=== PATIENT | male | born 1975 | race Caucasian/White ===

== ENCOUNTER 2018-08-01 18:37 | Emergency (ER) | payer OTHER ==
[2018-08-01 18:55] VITALS: BP 136/86; PULSE 78; TEMP 98; BMI 24.7
--- NOTE | 2018-08-01 20:22 | PDOC ---
Attending Attestation - HPI HPI: 08/01/18 21:07 Patient is a 42 year old male with a significant past medical history of who presents to the ED with complaints of congestion that began earlier today. Patient reports coughing earlier today when he noticed presence of bright red blood with blood clots, prompting him to come into the ED for further evaluation. Denies chest pain, Sob. Denies nausea, vomiting. Deines contact with sick individuals, out of state travelling. Denies any other symptoms. Allergies: Aspirin Social history: No smoking. No alcohol. No illicit drugs. Surgical history: None PMD: None - Physicial Exam PE: 08/01/18 21:07 Agree with residents Physical Exam. <Jaime Rodriguez - Last Filed: 08/01/18 21:07> - Resident Resident Name: Amy Smith - ED Attending Attestation I have performed the following: I have examined & evaluated the patient, The case was reviewed & discussed with the resident, I agree w/resident's findings & plan - Medical Decision Making 08/01/18 22:31 42-year-old male with cough and blood-tinged sputum Patient has had some intermittent back pain with cough D-dimer within normal limits Chest x-ray shows no acute consolidation There has been no weight loss or associated night sweats to suggest TB infection Plan for discharge home pending chemistry results with outpatient primary care follow-up <Ophelia Jarvis - Last Filed: 08/01/18 22:32>
--- NOTE | 2018-08-01 21:08 | PDOC ---
History of Present Illness - General Chief Complaint: Hemoptysis Stated Complaint: COUGHING UP BLOOD Time Seen by Provider: 08/01/18 20:17 History Source: Patient Exam Limitations: Language Barrier - History of Present Illness Initial Comments: 08/01/18 21:02 Pt is a 42yo M with no significant PMH presenting to ED for hemoptysis. Pt states around 2pm today he started to feel congestion in the chest. He states that the phlegm he would cough up was bright red with some clots x3. He has never had symptoms like this before. Associated with some chest tightness. He denies fevers, chills, weight loss, night sweats, history of TB, headache, neck stiffness, abdominal pain, n/v/d, bloody stools, urinary symptoms, back pain, recent surgery, recent travel, leg swelling, palpitations. No sick contacts. 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 PMD: none PMH: none PSH: appendectomy Meds: none Allergies: ASA Social: denies tobacco use Past History - Past Medical History Allergies/Adverse Reactions: Allergies Allergy/AdvReac Type Severity Reaction Status Date / Time aspirin AdvReac Severe Difficulty Verified 08/01/18 18:50 Breathing COPD: No - Surgical History Appendectomy: Yes - Suicide/Smoking/Psychosocial Hx Smoking History: Never smoked Hx Alcohol Use: No Drug/Substance Use Hx: No Review of Systems - Review of Systems Constitutional: No: Chills, Fever, Night Sweats, Weakness, Unintentional Wgt. Loss HEENTM: No: Symptoms Reported Respiratory: Yes: Cough, Hemoptysis. No: Shortness of Breath Cardiac (ROS): Yes: See HPI, Chest Tightness. No: Lightheadedness, Palpitations , Syncope ABD/GI: No: Constipated, Diarrhea, Nausea, Rectal Bleeding, Vomiting, Abdominal cramping, Tarry Stools : No: Burning, Dysuria, Hematuria Musculoskeletal: No: Back Pain, Joint Pain, Muscle Pain Integumentary: No: Symptoms Reported Neurological: No: Symptoms reported *Physical Exam - Vital Signs Last Vital Signs Temp Pulse Resp BP Pulse Ox 98.0 F 78 22 H 136/86 98 08/01/18 18:51 08/01/18 18:51 08/01/18 18:51 08/01/18 18:51 08/01/18 18:51 - Physical Exam General Appearance: Yes: Nourished, Appropriately Dressed. No: Apparent Distress HEENT: positive: EOMI, SHANNON, Normal ENT Inspection, Other (no leisons in the mouth) Neck: positive: Trachea midline, Supple. negative: Lymphadenopathy (R), Lymphadenopathy (L) Respiratory/Chest: positive: Lungs Clear, Normal Breath Sounds. negative: Labored Respiration, Crackles, Rales, Rhonchi, Stridor Cardiovascular: positive: Regular Rhythm, Regular Rate, S1, S2. negative: Edema , JVD, Murmur Vascular Pulses: Carotid (R): 2+, Carotid (L): 2+, Dorsalis-Pedis (R): 2+, Doralis-Pedis (L): 2+ Gastrointestinal/Abdominal: positive: Normal Bowel Sounds, Soft. negative: Tender Musculoskeletal: negative: CVA Tenderness Extremity: positive: Normal Capillary Refill, Pelvis Stable. negative: Swelling , Calf Tenderness Integumentary: positive: Normal Color, Dry, Warm. 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 Pt states around 2pm today he started to feel congestion in the chest. He states that the phlegm he would cough up was bright red with some clots x3. He has never had symptoms like this before. Associated with some chest tightness. He denies SOB, fevers, chills, weight loss, night sweats, history of TB, headache, neck stiffness, abdominal pain, n/v/d, bloody stools, urinary symptoms, back pain, recent surgery, recent travel, leg swelling, palpitations. No sick contacts. 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 Vitals: tachypneic 22, normocardic PE: normal breath sounds, normal heart sounds Ddx includes but not limited to bronchitis, TB, PE, malignancy, AVM, dissection , metabolic disorders, low suspicion for cardiac etiology, infectious causes -cbc, cmp, coags, trop, ddimer -cxr all labs wnl. negative trop, negative ddimer. CXR does not show infiltrates or consolidations. most likely bronchitis. Pt hemodynamically stable, wiill dc home. given f/u for pulm and primary care. pt understood return precautions. 08/02/18 00:03 *DC/Admit/Observation/Transfer Diagnosis at time of Disposition: Hemoptysis, Bronchitis - Discharge Dispostion Condition at time of disposition: Good Decision to Admit order: No - Referrals Referrals: German Louise MD, MD [Staff Physician] - - Patient Instructions Printed Discharge Instructions: DI for Hemoptysis Additional Instructions: Fue atendido hoy en la liliya de emergencias por toser lionel (hemoptisis). El laboratorio es normal y la radiografa es normal. Esta es la bronquitis ms probable. Puede usar aerosoles de solucin salina nasal y usar un humidificador. Puede luciana Tylenol o ibuprofeno para el dolor segn sea necesario. Le recomiendo que basil sherrie kelly con un neumlogo (mdico de pulmn). Se puede mikey al Dr. Louise Tambin le recomiendo que absil sherrie kelly con un mdico de atencin primaria. VIKY BENAVIDEZ [address] [facility] [address] [place] [address] T: [phone] Regrese a la liliya de emergencias si la tos empeora, desarrolla fiebre, comienza a perder peso, tiene dificultad para respirar o si aparece algn sntoma nuevo. Teresa You were seen in the emergency room today for coughing up blood (hemoptysis). The lab is normal and the Xray is normal. This is most likely bronchitis. You can use nasal saline sprays and use a humidifier. You can take Tylenol or ibuprofen for pain as needed. I recommend that you make an appointment with a business broker (lung doctor). You can see Dr. Louise I also recommend you make an appointment with a primary care doctor. Call to make an appointment any time. VIKY BENAVIDEZ [address] [facility] [address] [place] [address] T: [phone] Come back to the emergency room if cough gets worse, you develop fever, you start losing weight, you have difficulty breathing or if any new concerning symptom develops. Thank you Print Language: UKRAINIAN - Post Discharge Activity Forms/Work/School Notes: Back to Work
[2018-08-01 21:13] LABS: BASO % 0.9 % (0-2.0); EOS % 0.7 % (0-4.5); HEMATOCRIT 43.1 % (35.4-49); LYMPH % 30.2 % (8-40); MCH 30.1 pg (25.7-33.7); MCHC 34.7 g/dl (32.0-35.9); MEAN CELL VOLUME 86.7 fl (80-96); MEAN PLT VOLUME 9.2 fl (7.5-11.1); MONO % 7.6 % (3.8-10.2); NEUT % 60.6 % (42.8-82.8); RBC 4.97 M/mm3 (4.00-5.60); RDW 14.3 % (11.9-15.9); WHITE BLOOD COUNT 9.9 K/mm3 (4.0-10.0)
[2018-08-01 21:34] LABS: INR 0.92 (0.83-1.09); PROTHROMBIN TIME (PATIENT) 10.9 SEC (9.7-13.0)
[2018-08-01 21:37] LABS: ACTIVATED PTT 24.5 SECONDS (25.2-36.5)
[2018-08-01 21:49] LABS: PLATELET ESTIMATE DECREASED
[2018-08-01 22:32] LABS: ALK PHOS 111 U/L (45-117); ANION GAP 7 MMOL/L (8-16); BILIRUBIN,TOTAL 0.4 mg/dL (0.2-1); BLOOD UREA NITROGEN 12 mg/dL (7-18); CALCIUM 8.9 mg/dL (8.5-10.1); CHLORIDE 106 mmol/L (98-107); CO2 25 mmol/L (21-32); CREATININE 0.9 mg/dL (0.55-1.3); GLUCOSE,RANDOM 98 mg/dL (74-106); POTASSIUM 4.1 mmol/L (3.5-5.1); SGOT/AST 36 U/L (15-37); SGPT/ALT 54 U/L (13-61); SODIUM 138 mmol/L (136-145); TOT PROT 8.1 g/dl (6.4-8.2)
== END 2018-08-01 23:42 | disposition home or self-care (01) ==
LOC: JER 18:37
DX: J40 Bronchitis, not specified as acute or chronic (principal)
CPT/HCPCS: 36415; 71046-TC-FY; 80053; 84484; 85025; 85379; 85610; 85730; 99281-25